=== PATIENT | female | born 1955 | race Caucasian/White ===

== ENCOUNTER 2019-08-12 14:54 | Outpatient (CLI) | payer BC, SELFPAY ==
--- NOTE | 2019-08-12 15:18 | MM_ITS ---
WS: [id number] SCREENING DIGITAL MAMMOGRAM WITH CAD HISTORY: SCREENING COMPARISON: 11/30/2017 and 09/02/2016 Bilateral CC and MLO views submitted. Computer aided detection analyzed. Breast composition: The breasts are heterogeneously dense, which may obscure small masses. No suspici ous masses, microcalcifications or architectural distortion. Benign calcification medial inferior LEF T breast. MM/[id number] IMPRESSION: BI-RADS: 2-Benign FOLLOW UP: 1 Year Follow-up
== END 2019-08-12 14:55 | disposition home or self-care (01) ==
PROVIDERS: Family Provider Family Medicine; PCP Family Medicine; Visit Provider Family Medicine
DX: Z12.31 Encounter for screening mammogram for malignant neoplasm of breast (principal)
CPT/HCPCS: 77067

== ENCOUNTER 2019-09-02 05:50 | Day surgery (SDC) | payer BC, SELFPAY ==
[2019-09-02 06:08] VITALS: BP 141/92; PULSE 67; RESP 18; TEMP 36.7; O2SAT 97
[2019-09-02] MEDS: sodium chloride 0.9% 1,000 ML 30 ML IV (06:17)
--- NOTE | 2019-09-02 06:36 | ANES.PREANES ---
Pre-Anesthetic Assessment Pre-Anesthetic Assessment: Height/Weight: Height 1.6 m Weight 64.864 kg Temp Pulse Resp BP Pulse Ox 98.0 F 67 18 141/92 97 09/02/19 06:08 09/02/19 06:08 09/02/19 06:08 09/02/19 06:08 09/02/19 06:08 Preop Diagnosis: left long trigger finger Proposed Procedure: Operation Date: 09/02/19 07:00 Proposed Procedures p Trigger Finger Release(Left) - Sanjiv Bella DO Last intake: Intake Last Liquid Date 09/01/19 Last Liquid Time 18:30 Last Solid Date 09/01/19 Last Solid Time 18:30 Social: Social History: No alcohol and No tobacco Exam: Pre-Anes Outpt Exam: alert, oriented x 3, clear to auscultation bilaterally and regular rate & rhythm Airway: Submandibular: WNL Cervical ROM: WNL MP: 2 Dentition: False (upper) History/ROS: No significant history except as noted CV/HEM: CV/HEM: HTN : : None reported Hepatic: Hepatic: None reported GI: GI: GERD (occ) Metabolic: Metabolic: Hyperlipidemia Musc/skel: Musc/skel: None reported Neuropsych: Neuropsych: None reported Anesthetic Plan: ASA status: II Anesthesia: Anesthesia Evaluation and MAC Risk of > 500 ml blood loss (7ml/kg in children): No Meds/Allergies Current Medications: Current Medications Generic Name Dose Route Start Last Admin Trade Name Freq PRN Reason Stop Dose Admin Sodium Chloride 1,000 mls @ 30 ml s/hr 09/02/19 05:45 09/02/19 06:17 Sodium Chloride 0.9% IV 09/03/19 05:44 30 mls/hr .Q24H CORINE Administration PFSH Anesthesia PFSH: Medical History Hyperlipemia (Acute) Hypertension (Acute) Surgical History H/O: hysterectomy (Acute) Social History Smoking and tobacco status: never smoked Alcohol intake: never Data Anesthesia Cardiac Studies: No Data to Display
--- NOTE | 2019-09-02 06:52 | PM.HPUD ---
H&P update H&P Update: DATE OF SURGERY/PROCEDURE: 09/02/19 DATE H&P PERFORMED: 08/17/19 PLANNED PROCEDURE: Operation Date: 09/02/19 07:00 Proposed Procedures p Trigger Finger Release(Left) - Sanjiv Bella DO Full H&P Medications/Allergies: Current Medications: Current Medications Generic Name Dose Route Start Last Admin Trade Name Freq PRN Reason Stop Dose Admin Sodium Chloride 1,000 mls @ 30 ml s/hr 09/02/19 05:45 09/02/19 06:17 Sodium Chloride 0.9% IV 09/03/19 05:44 30 mls/hr .Q24H CORINE Administration Perinent History: Medical/Surgical History: Medical History (Updated 08/18/19 @ 17:15 by Sanjiv Bella DO) Hyperlipemia (Acute) Hypertension (Acute) Social History: Social History Smoking and tobacco status: never smoked Alcohol intake: never
--- NOTE | 2019-09-02 06:53 | PM.OP ---
Operative Report Date of procedure: 09/02/19 Pre-op Diagnosis: left long trigger finger Post-op diagnosis: same Post-op Findings: Left long trigger finger Procedure Done: Left long trigger finger release Implants: n/a Pathology: none sent Surgeon: Sanjiv Bella Anesthesia: MAC Estimated blood loss (mL): 5 Tourniquet time (min): 11 (250 mmHg pressure) Complications: None Findings: Thickened tenosynovium tight A1 satinder Condition: stable Disposition: same day Brief History: 63-year-old white female with persistent triggering of the left long finger to include locking. Risk, benefits and potential complications of surgical intervention were discussed with the patient. Risks include are not limited to infection, nerve/blood vessel stent injury, failure to relieve all symptoms possible recurrence. Patient is agreeable to proceed with surgery. Procedure: 1.5 g Zinacef Patient identified. Surgical site signed. Surgical parasite. Patient be 1.5 g of Zinacef intravenously for surgical prophylaxis. She was taken back to the operating. She is placed supine on the operative table. A tourniquet placed at the upper aspect left upper extremity. The left upper extremity was sterilely prepped and draped usual fashion after the area of intended surgery was injected with 6 cc of one-to-one mixture 1% lidocaine and half percent Marcaine. A timeout was performed the operative limb was exsanguinated using Esmarch bandage tourniquet inflated 200 m mercury pressure. Transverse incision was made proximal to the area of the underlying A1 satinder of the left long finger. Dissection was carried down to the tendon sheath using tenotomy scissors. Retractors were placed on the radial ulnar aspects of the flexor tendons. The skin was undermined overlying the A1 satinder. The A1 satinder was identified. A small incision of the A1 satinder leading edge was first made with a #11 blade. We then completed the split of the A1 satinder using a tenotomy scissors. We verified the complete release of the A1 satinder. A hemostat was placed beneath the tendons and they were delivered out of the wound. Other than thickening of the tenosynovium no significant tendon pathology is noted. We asked the patient to flex and extend the digits of her left hand. She is able to do so without any triggering or locking of the left long finger. There is irrigated with Betadine containing saline solution and antibiotic containing saline solution skin was closed with nylon sutures on skin. Sterile dressings were applied as well as antibiotic ointment. Tourniquet was deflated during application of dressings. Patient was aroused from sedation taken back to outpatient surgery area. She tolerated surgery well. All counts are correct.
[2019-09-02] MEDS: cefUROXime 1,500 MG in sodium chloride 0.9% (plus) 50 ML 100 MG IV (06:57)
[2019-09-02] MEDS: lidocaine 1% INJ 20 mL SUBCUT (07:18)
[2019-09-02] MEDS: neomycin-poly-bacitracin oint 28 gm 1 APPLIC TOPICAL (07:32)
[2019-09-02 07:40] VITALS: BP 102/61; PULSE 55; RESP 18; TEMP 36.2; O2SAT 95
[2019-09-02 08:25] VITALS: BP 126/74; PULSE 51; RESP 18; O2SAT 100
[2019-09-02] MEDS: HYDROcodone-acetaminophen 5-325 mg Tablet 1 TAB PO (08:40)
== END 2019-09-02 08:46 | disposition home or self-care (01) ==
PROVIDERS: Family Provider Family Medicine; PCP Family Medicine; Visit Provider Orthopaedic Surgery
PROC: (CPT 26055; principal; 2019-09-02 07:00)
DX: M65.332 Trigger finger, left middle finger (principal); E78.5 Hyperlipidemia, unspecified; I10 Essential (primary) hypertension
CPT/HCPCS: 26055; 12345; 96365; J0697; J1580; J2001; J2250; J2704; J3010; J3490; J7030

== ENCOUNTER 2020-12-12 09:12 | Outpatient (CLI) | payer OTHER, SELFPAY ==
--- NOTE | 2020-12-12 09:17 | MM_ITS ---
WS: [id number] SCREENING DIGITAL MAMMOGRAM WITH CAD HISTORY: SCREENING COMPARISON: 08/12/2019, 11/30/2017 Bilateral CC and MLO views submitted. Computer aided detection analyzed. Breast composition: The breasts are heterogeneously dense, which may obscure small masses. No suspici ous masses, microcalcifications or architectural distortion. MM/[id number] IMPRESSION: BI-RADS: 1-Negative FOLLOW UP: 1 Year Follow-up
== END 2020-12-12 09:13 | disposition home or self-care (01) ==
LOC: RADSHAW 09:14
PROVIDERS: PCP Family Medicine; Visit Provider Nurse Practitioner Family
DX: Z12.31 Encounter for screening mammogram for malignant neoplasm of breast (principal)
CPT/HCPCS: 77067

== ENCOUNTER 2021-08-18 09:44 | Emergency (ER) | payer OTHER, SELFPAY ==
--- NOTE | 2021-08-18 09:46 | ECG_ITS ---
[facility] Test Date: 2021-08-18 Pat Name: Telma Hill Department: Room: Gender: Female Field Support Representative: : 1955 Requested By: Rafaela Liu Order Number: [id number] Higgins MD: Jayne Rodrigues M.D. Measurements Intervals [place] Rate: 78 P: 51 GA: 157 QRS: 54 QRSD: 90 T: 51 QT: 387 QTc: 443 Interpretive Statements SINUS RHYTHM No previous ECG available for comparison Electronically Signed On 08-20-2021 5:22:05 PRODUCTION COUNTER by Jayne Rodrigues M.D. [id number]
[2021-08-18 09:52] VITALS: BP 168/79; PULSE 82; RESP 12; TEMP 36.6; O2SAT 97; BMI 24.7
--- NOTE | 2021-08-18 12:11 | W.ED.GENADLT ---
Documented by User: Rafaela Liu PA-C 08/18/21 14:15 HPI - General Adult General: Chief complaint: Headache Stated complaint: HIGH B/P Time Seen by Provider: 08/18/21 12:07 Source: patient Mode of arrival: ambulatory Limitations: no limitations History of Present Illness: HPI narrative: 65-year-old female presents to the ER today for elevated blood pressure and headache. Patient reports she first noticed this yesterday when she began having a headache. Patient has been checking her blood pressure and noticed it has been high. This morning it was almost 180/110. Patient reports she has some blurry vision but that is a chronic issue. Patient has not taken anything for headache because she did not know what she could take with blood pressure issues. Patient reports she is on 5 mg of lisinopril but that is all she takes for blood pressure. She has never had blood pressures like this before. Patient denies any other symptoms at this time. Denies chest pain, shortness of breath, nausea, vomiting, diarrhea, constipation. Onset (ago): day(s) Review of Systems General: Reports: 10 or more systems reviewed and unremarkable except in HPI and below PFSH ED PFSH: Medical History Hyperlipemia Hypertension Surgical History H/O: hysterectomy Social History Smoking and tobacco status: never smoked Alcohol intake: never Physical Exam Const: COMMON NORMALS: no acute distress, average body habitus and patient oriented x3 GENERAL APPEARANCE: cooperative and comfortable HENMT: COMMON NORMALS: normocephalic, external ears normal, TM's normal bilaterally, Normal external nose present, Normal nasal mucous membranes and turbinates present, moist oral mucous membranes and oropharynx normal HEAD & SCALP: normocephalic NOSE: Normal external nose present and Normal nasal mucous membranes and turbinates present EXTERNAL EAR: Yes external ears normal TYMPANIC MEMBRANE: TM's normal bilaterally Eye: COMMON NORMALS: Equal, round and reactive pupils present and conjunctivae normal CONJUNCTIVA: Yes conjunctivae normal PUPIL: Yes Equal, round and reactive pupils present Lymph: LYMPHATIC: no lymphadenopathy noted Resp: COMMON NORMALS: normal respiratory effort, No retractions and clear to auscultation bilaterally EFFORT & INSPECTION: Yes able to speak in complete sentences AUSCULTATION: clear to auscultation bilaterally, no rales, no rhonchi and no wheezes Cardio: COMMON NORMALS: regular rate, regular rhythm and No murmurs present (Cardio) RATE: regular rate RHYTHM: regular rhythm GI: COMMON NORMALS: Normal to inspection, nondistended, normoactive bowel sounds present, Soft to palpation and non-tender PALPATION: Yes Soft to palpation Extremity: COMMON NORMALS: normal to inspection and full ROM Neuro: COMMON NORMALS: patient oriented x3, moves all extremities, no sensory deficits noted and gait normal Psych: COMMON NORMALS: mental status grossly normal, Normal thought process present and cooperative THOUGHT PROCESS: Normal thought process present Skin: COMMON NORMALS: no rashes or lesions noted and no wounds GENERAL SKIN EXAM: no rashes or lesions noted Course ED course: Patient presents to the ER today for elevated blood pressure and headache. She has a history of hypertension but is only taking 5 mg daily of lisinopril. Headache began after blood pressure started being elevated yesterday. Patient has not taken anything for her headache. We will give patient clonidine in the ER to help with the elevated blood pressure. Recommended patient take [id number]-[id number]-[id number] meds at home. EKG done in ER. Reevaluation(s): Reevaluation #1: Blood pressure significantly improved after clonidine. Headache has resolved. Waiting on lab work to send patient home. Time: 14:01 Vital Signs: Vital signs: Vital Signs Temperature 97.9 F 08/18/21 14:50 Pulse Rate 70 08/18/21 14:50 Respiratory Rate 14 08/18/21 14:50 Blood Pressure 127/71 08/18/21 14:50 Pulse Oximetry 96 08/18/21 14:50 MDM - General Adult MDM Narrative: Medical decision making narrative: 65-year-old female presents to the ER today for hypertension and headache. Patient reports the headache began after her blood pressure began to rise. Patient only takes 5 mg daily of lisinopril. Patient denies any other symptoms associated with the hypertension except for the headache. Patient has not taken anything at home for the headache at this time. Patient denies any recent illnesses. Denies blurry vision, chest pain, shortness of breath. EKG is normal in the ER today. We will give patient clonidine 0.1 mg to help with the elevated blood pressure. We will change patient's medication to lisinopril 10 mg daily and hydrochlorothiazide 12.5 mg daily patient to follow-up with her PCP in 3 to 5 days. Return to the ER with any new or worsening symptoms. Patient verbalized understanding and is in agreement with the treatment plan. Lab Data: Attestation: I reviewed the patient's lab results. Labs: Lab Results 08/18/21 08/18/21 13:42 13:42 WBC 6.7 10^3/uL 10^3/ uL (4.0-10.0) RBC 4.44 10^6/uL 10^6 /uL (4.1-5.3) Hgb 13.4 g/dL g/dL (11.5-15.3) Hct 40.8 % % (37.0-47.0) MCV 91.9 fl fl (81-99) MCH 30.2 pg pg (28.0-34.0) MCHC 32.8 g/dL g/dL (30.0-36.0) RDW 12.4 % % (12.1-15.1) Plt Count 241 10^3/cmm 10^3 /cmm (130-400) MPV 11.9 fL H fL (7.4-10.4) Neut % (Auto) 71.5 % % Lymph % (Auto) 19.3 % % [place] % (Auto) 7.9 % % Eos % (Auto) 0.4 % % Baso % (Auto) 0.6 % % Neut # (Auto) 4.82 10^3/uL 10^3 /uL (1.8-7.7) Lymph # (Auto) 1.3 10^3/uL 10^3/ uL (0.8-4.8) [place] # (Auto) 0.5 10^3/uL 10^3/ uL (0.2-0.9) Eos # (Auto) 0.0 10^3/uL 10^3/ uL (0.0-0.8) Baso # (Auto) 0.0 10^3/uL 10^3/ uL (0.0-0.1) Nucleated RBC % (a uto) 0 % % Nucleated RBCs # 0.0 /100WBC /100W BC Sodium 138 mmol/L mmol/L (136-145) Potassium 4.3 mmol/L mmol/L (3.5-5.1) Chloride 100 mmol/L mmol/L (98-107) Carbon Dioxide 30 mmol/L H mmol/ L (22-29) Anion Gap 12.3 (5-19) BUN 7 mg/dL L mg/dL (8-23) Creatinine 0.8 mg/dL mg/dL (0.5-0.9) GFR Calculation 72.2 mL/min L mL/ min (90-130) Glucose 97 mg/dL mg/dL (65-115) Calculated Osmolal ity 284 mOsm/kg L mOs m/kg (285-295) Calcium 8.6 mg/dL mg/dL (8.5-10.5) Total Bilirubin 0.3 mg/dL mg/dL (0.15-1.2) AST 15 U/L U/L (0-32) ALT 10 U/L U/L (0-33) Alkaline Phosphata se 71 IU/L IU/L (35-105) Total Protein 6.4 g/dL L g/dL (6.6-8.7) Albumin 4.3 g/dL g/dL (3.5-5.2) Globulin 2.1 g/dL g/dL (1.3-4.6) Discharge Plan Discharge Patient Disposition: Home Clinical Impression: Hypertension Qualifiers: Hypertension type: unspecified Qualified Code(s): I10 - Essential (primary) hypertension Headache Qualifiers: Headache type: unspecified Headache chronicity pattern: acute headache Intractability: not intractable Qualified Code(s): R51.9 - Headache, unspecified Condition: Stable Prescriptions: New lisinopril 10 mg tablet 10 mg PO DAILY Qty: 30 RF: 0 hydrochlorothiazide 12.5 mg tablet 12.5 mg PO DAILY Qty: 30 RF: 0 Discontinued lisinopril 10 mg Tablet 5 mg PO DAILY RF: 0 No Action simvastatin 40 mg tablet 40 mg PO ONCE RF: 0 fluoxetine [Prozac] 10 mg capsule 10 mg PO ONCE RF: 0 aspirin 81 mg Tablet,Chewable 81 mg PO DAILY RF: 0 hydrocodone-acetaminophen 5-325 mg tablet 1 tab PO Q4H PRN (Reason: pain) Qty: 20 RF: 0 Discharge Orders: Discharge ED (Routine); Ordered 08/18/21 Ordered By: Rafaela Liu Referrals: Josiah Mohr MD [Primary Care Provider] - Discharge Diet: Usual diet Discharge Activity: Resume usual activity Patient Instructions: Hypertension (ED), Opioid Safety Activity Restrictions/Additional Instructions: Take hydrochlorothiazide and lisinopril as prescribed. Take [id number]-wvejlje medications for headache such as Tylenol and ibuprofen. Follow-up with PCP in 3 to 5 days. Return to the ER with any new or worsening symptoms. Coding Level of Care Code ED Health And Safety Trainer for Chg Fwd Exam Comprehensive Documented by User: Erich Blair MD 08/24/21 21:30 HPI - General Adult General: Chief complaint: Headache Stated complaint: HIGH B/P Time Seen by Provider: 08/18/21 12:07 [facility] ED PFSH: Medical History Hyperlipemia Hypertension Surgical History H/O: hysterectomy Social History Smoking and tobacco status: never smoked Alcohol intake: never Course Vital Signs: Vital signs: Vital Signs Temperature 97.9 F 08/18/21 14:50 Pulse Rate 70 08/18/21 14:50 Respiratory Rate 14 08/18/21 14:50 Blood Pressure 127/71 08/18/21 14:50 Pulse Oximetry 96 08/18/21 14:50 MDM - General Adult MDM Narrative: Medical decision making narrative: I discussed this case with LINDSEY Schmitz. I have reviewed documentation, labs, imaging. Erich Blair MD Emergency Medicine Lab Data: Labs: Lab Results 08/18/21 08/18/21 13:42 13:42 WBC 6.7 10^3/uL 10^3/ uL (4.0-10.0) RBC 4.44 10^6/uL 10^6 /uL (4.1-5.3) Hgb 13.4 g/dL g/dL (11.5-15.3) Hct 40.8 % % (37.0-47.0) MCV 91.9 fl fl (81-99) MCH 30.2 pg pg (28.0-34.0) MCHC 32.8 g/dL g/dL (30.0-36.0) RDW 12.4 % % (12.1-15.1) Plt Count 241 10^3/cmm 10^3 /cmm (130-400) MPV 11.9 fL H fL (7.4-10.4) Neut % (Auto) 71.5 % % Lymph % (Auto) 19.3 % % [place] % (Auto) 7.9 % % Eos % (Auto) 0.4 % % Baso % (Auto) 0.6 % % Neut # (Auto) 4.82 10^3/uL 10^3 /uL (1.8-7.7) Lymph # (Auto) 1.3 10^3/uL 10^3/ uL (0.8-4.8) [place] # (Auto) 0.5 10^3/uL 10^3/ uL (0.2-0.9) Eos # (Auto) 0.0 10^3/uL 10^3/ uL (0.0-0.8) Baso # (Auto) 0.0 10^3/uL 10^3/ uL (0.0-0.1) Nucleated RBC % (a uto) 0 % % Nucleated RBCs # 0.0 /100WBC /100W BC Sodium 138 mmol/L mmol/L (136-145) Potassium 4.3 mmol/L mmol/L (3.5-5.1) Chloride 100 mmol/L mmol/L (98-107) Carbon Dioxide 30 mmol/L H mmol/ L (22-29) Anion Gap 12.3 (5-19) BUN 7 mg/dL L mg/dL (8-23) Creatinine 0.8 mg/dL mg/dL (0.5-0.9) GFR Calculation 72.2 mL/min L mL/ min (90-130) Glucose 97 mg/dL mg/dL (65-115) Calculated Osmolal ity 284 mOsm/kg L mOs m/kg (285-295) Calcium 8.6 mg/dL mg/dL (8.5-10.5) Total Bilirubin 0.3 mg/dL mg/dL (0.15-1.2) AST 15 U/L U/L (0-32) ALT 10 U/L U/L (0-33) Alkaline Phosphata se 71 IU/L IU/L (35-105) Total Protein 6.4 g/dL L g/dL (6.6-8.7) Albumin 4.3 g/dL g/dL (3.5-5.2) Globulin 2.1 g/dL g/dL (1.3-4.6) Discharge Plan Discharge Patient Disposition: Home Clinical Impression: Hypertension Qualifiers: Hypertension type: unspecified Qualified Code(s): I10 - Essential (primary) hypertension Headache Qualifiers: Headache type: unspecified Headache chronicity pattern: acute headache Intractability: not intractable Qualified Code(s): R51.9 - Headache, unspecified Condition: Stable Prescriptions: New lisinopril 10 mg tablet 10 mg PO DAILY Qty: 30 RF: 0 hydrochlorothiazide 12.5 mg tablet 12.5 mg PO DAILY Qty: 30 RF: 0 Discontinued lisinopril 10 mg Tablet 5 mg PO DAILY RF: 0 No Action simvastatin 40 mg tablet 40 mg PO ONCE RF: 0 fluoxetine [Prozac] 10 mg capsule 10 mg PO ONCE RF: 0 aspirin 81 mg Tablet,Chewable 81 mg PO DAILY RF: 0 hydrocodone-acetaminophen 5-325 mg tablet 1 tab PO Q4H PRN (Reason: pain) Qty: 20 RF: 0 Discharge Orders: Discharge ED (Routine); Ordered 08/18/21 Ordered By: Rafaela Liu Referrals: Josiah Mohr MD [Primary Care Provider] - Discharge Diet: Usual diet Discharge Activity: Resume usual activity Patient Instructions: Hypertension (ED), Opioid Safety Activity Restrictions/Additional Instructions: Take hydrochlorothiazide and lisinopril as prescribed. Take [id number]-[id number] medications for headache such as Tylenol and ibuprofen. Follow-up with PCP in 3 to 5 days. Return to the ER with any new or worsening symptoms. Coding Level of Care Code ED Health And Safety Trainer for Jerry Fwd Exam Comprehensive
[2021-08-18 12:56] VITALS: BP 157/83
[2021-08-18] MEDS: cloNIDine 0.1 mg Tablet PO (12:56)
[2021-08-18 13:23] VITALS: BP 150/79
[2021-08-18 13:55] LABS: Basophils % 0.6 %; Eosinophils % 0.4 %; Hematocrit 40.8 % (37.0-47.0); Hemoglobin 13.4 g/dL (11.5-15.3); Lymphocytes # 1.3 10^3/uL (0.8-4.8); Lymphocytes % 19.3 %; Mean Corpuscular HGB Conc 32.8 g/dL (30.0-36.0); Mean Corpuscular Hemoglobin 30.2 pg (28.0-34.0); Mean Corpuscular Volume 91.9 fl (81-99); Mean Platelet Volume 11.9 fL (7.4-10.4); Monocytes # 0.5 10^3/uL (0.2-0.9); Monocytes % 7.9 %; Neutrophils # 4.82 10^3/uL (1.8-7.7); Neutrophils % 71.5 %; Nucleated Red Blood Cells % 0 %; Platelet Count 241 10^3/cmm (130-400); Red Blood Count 4.44 10^6/uL (4.1-5.3); Red Cell Distribution Width 12.4 % (12.1-15.1); White Blood Count 6.7 10^3/uL (4.0-10.0)
[2021-08-18 14:12] LABS: Alanine Aminotransferase 10 U/L (0-33); Albumin Level 4.3 g/dL (3.5-5.2); Alkaline Phosphatase 71 IU/L (35-105); Anion Gap 12.3 (5-19); Aspartate Amino Transferase 15 U/L (0-32); Blood Urea Nitrogen 7 mg/dL (8-23); Calcium 8.6 mg/dL (8.5-10.5); Carbon Dioxide 30 mmol/L (22-29); Chloride 100 mmol/L (98-107); Globulin 2.1 g/dL (1.3-4.6); Glomerular Filtration Rate 72.2 mL/min (90-130); Glucose 97 mg/dL (65-115); Osmolality Calculated 284 mOsm/kg (285-295); Potassium 4.3 mmol/L (3.5-5.1); Sodium 138 mmol/L (136-145); Total Bilirubin 0.3 mg/dL (0.15-1.2); Total Protein 6.4 g/dL (6.6-8.7)
--- NOTE | 2021-08-18 14:45 | PC.NURSE ---
reviewed discharge instructions with patient, pt verbalizes understanding of all instructions, medications and follow up. pt ambulated from the ED without issue with all belongs
[2021-08-18 14:50] VITALS: BP 127/71; PULSE 70; RESP 14; TEMP 36.6; O2SAT 96
== END 2021-08-18 14:51 | disposition home or self-care (01) ==
PROVIDERS: Emergency Provider Physician Assistant; PCP Family Medicine
DX: I10 Essential (primary) hypertension (principal); R51.9 Headache, unspecified; E78.5 Hyperlipidemia, unspecified; Z79.82 Long term (current) use of aspirin; Z79.891 Long term (current) use of opiate analgesic
CPT/HCPCS: 80053; 85025; 93005; 99283

== ENCOUNTER 2021-10-22 20:00 | Outpatient (CLI) | payer OTHER, SELFPAY | END 2021-10-22 20:01 | disposition home or self-care (01) | LOC: SLEEP 10-23 07:36 | PROVIDERS: PCP Family Medicine; Visit Provider Family Medicine | DX: G47.10 Hypersomnia, unspecified (principal); R06.83 Snoring; R53.83 Other fatigue; G47.33 Obstructive sleep apnea (adult) (pediatric) | CPT/HCPCS: 95810 ==

== ENCOUNTER 2022-02-20 10:17 | Outpatient (CLI) | payer OTHER, SELFPAY ==
--- NOTE | 2022-02-20 10:25 | MM_ITS ---
WS: [id number] Bilateral screening 3D tomosynthesis digital mammogram, 02/20/2022 Clinical Data: SCREENING Comparison: 12/12/2020, 08/12/2019, 11/30/2017, 09/02/2016, 06/13/2015, 05/20/2012, 05/01/2010 Findings: The breast parenchymal pattern shows heterogeneous density. No spiculated masses or clustered calcifi cations are seen. There are no secondary signs of carcinoma. MM/[place] [id number] Impression: 1. Negative bilateral mammogram unchanged. 2. Recommend annual screening mammograms. BIRADS: 1-Negative FOLLOW UP: 1 Year Follow-up The CAD mechanical car checker was used.
== END 2022-02-20 10:18 | disposition home or self-care (01) ==
LOC: RAD 10:18
PROVIDERS: PCP Family Medicine; Visit Provider Family Medicine
DX: Z12.31 Encounter for screening mammogram for malignant neoplasm of breast (principal)
CPT/HCPCS: 77063; 77067

== ENCOUNTER 2022-03-21 13:08 | Outpatient (CLI) | payer OTHER, SELFPAY ==
--- NOTE | 2022-03-21 13:19 | XR_ITS ---
WS: [id number] DEXA (DUAL ENERGY X-RAY ABSORPTIOMETRY) Bone mineral density was performed using a [employer] machine. HISTORY: POSTMENOPAUSAL COMPARISON: None available. Lumbar spine BMD (L1-L4): 0.946 g/cm2 T score: -2.0 Z score: -0.4 Total hip BMD: Left: 0.715 g/cm2. T score: -2.3 Z score: -1.2 Right: 0.738 g/cm2. T score: -2.1 Z score: -1.0 10 year probability of a major osteoporotic fracture is 16.6%. XR/XR DEXA axial skeleton* [id number] IMPRESSION: OSTEOPENIA based upon the WHO classification for females.
== END 2022-03-21 13:09 | disposition home or self-care (01) ==
LOC: RAD 13:08
PROVIDERS: PCP Family Medicine; Visit Provider Family Medicine
DX: Z78.0 Asymptomatic menopausal state (principal); M85.80 Other specified disorders of bone density and structure, unspecified site
CPT/HCPCS: 77080

== ENCOUNTER 2023-06-05 09:46 | Outpatient (CLI) | payer OTHER, SELFPAY ==
--- NOTE | 2023-06-05 09:52 | MM_ITS ---
WS: [id number] VIEWS: MLO and CC views both breasts. 3D digital tomosynthesis is also included in this exam. Comparison made with prior exam of 12/16/2005, 05/01/2010, 05/20/2012, 06/13/2015, 09/02/2016, 11/30/2017, 08/12/2019, 12/12/2020, 02/20/2022.. Findings: There is a questionable 7 mm nodule seen in the medial RIGHT breast at posterior depth on the cc view only. This can be seen both on the conventional imaging and the tomogram. No architectural distortio n or suspicious calcification. Compression spot views of the RIGHT breast to include tomography is re commended for further work-up. Ultrasound of this area may also be necessary. The LEFT breast is unre markable. The breasts are heterogeneously dense which may obscure small masses. There were no other c hanges since prior studies. Impression: MM/[place] [id number] BI-RADS: 0-Incomplete: Need additional imaging evaluation FOLLOW-UP: See Report This mammogram was also analyzed by the Computer Aided Detection System R2 Imag e Professor Of Art History.
== END 2023-06-05 09:47 | disposition home or self-care (01) ==
PROVIDERS: PCP Family Medicine; Visit Provider Family Medicine
DX: Z12.31 Encounter for screening mammogram for malignant neoplasm of breast (principal)
CPT/HCPCS: 77063; 77067

== ENCOUNTER 2023-06-26 08:46 | Outpatient (CLI) | payer OTHER, SELFPAY ==
--- NOTE | 2023-06-26 09:05 | MM_ITS ---
WS: [id number] VIEWS: Compression spot images with tomography were obtained in the CC, ML and cleavage views for e valuation of the medial RIGHT breast. Comparison made with prior exam of screening mammogram 06/05/2023.. Findings: There is no suspicious mass, architectural distortion or calcification in the medial RIGHT breast wit h additional views and tomograms. There are scattered areas of fibroglandular density in the RIGHT br east. Continue yearly screening mammography. Impression: MM/[place] [id number] BI-RADS: 2-Benign finding. FOLLOW-UP: 1 Year Follow-up This mammogram was also analyzed by the Computer Aided Detection System R2 Imag e Contract Attorney.
== END 2023-06-26 08:47 | disposition home or self-care (01) ==
LOC: RAD 08:46
PROVIDERS: PCP Family Medicine; Visit Provider Family Medicine
DX: R92.8 Other abnormal and inconclusive findings on diagnostic imaging of breast (principal)
CPT/HCPCS: 77061; G0279

== ENCOUNTER 2024-07-01 10:16 | Outpatient (CLI) | payer MEDICARE, SELFPAY ==
--- NOTE | 2024-07-01 10:25 | MM_ITS ---
WS: [id number] BILATERAL SCREENING DIGITAL TOMOSYNTHESIS MAMMOGRAM WITH CAD HISTORY: SCREENING COMPARISON: 06/05/2023, 02/20/2022 and 12/12/2020 Bilateral CC and MLO views with tomosynthesis and synthetic mammography submitted. Computer aided det ection analyzed. Breast composition: There are scattered areas of fibroglandular density. No suspicious masses, microc alcifications or architectural distortion. MM/MM scr BI tomosynthesis [id number] IMPRESSION: BI-RADS: 1 - Negative. FOLLOW UP: 1 Year Follow-up
== END 2024-07-01 10:17 | disposition home or self-care (01) ==
LOC: RAD 10:18
PROVIDERS: PCP Family Medicine; Visit Provider Family Medicine
DX: Z12.31 Encounter for screening mammogram for malignant neoplasm of breast (principal); R92.323 Mammographic fibroglandular density, bilateral breasts
CPT/HCPCS: 77063; 77067

== ENCOUNTER 2024-09-01 13:00 | Outpatient (CLI) | payer MEDICARE, OTHER, SELFPAY ==
--- NOTE | 2024-09-01 13:10 | XR_ITS ---
WS: [id number] DEXA (DUAL ENERGY X-RAY ABSORPTIOMETRY) Bone mineral density was performed using a [employer] machine. HISTORY: POSTMENOPAUSAL COMPARISON: 03/21/2022 Lumbar spine BMD (L1-L4): 0.966 g/cm2 T score: -1.8 Z score: -0.4 Total hip BMD: Left: 0.704 g/cm2. T score: -2.4 Z score: -1.2 Right: 0.730 g/cm2. T score: -2.2 Z score: -1.0 10 year probability of a major osteoporotic fracture is 17.0%. Compared to the prior study from 03/21/2022. Lumbar spine bone mineral density has increased by 2.2%. Bilateral hips bone mineral density has decreased by 1.4%. XR/XR DEXA axial skeleton* [id number] IMPRESSION: OSTEOPENIA based upon the WHO classification for females. Significant increase in bone mineral density within the lumbar spine since the prior study. No significant change of bone mineral density within the hips.
== END 2024-09-01 13:01 | disposition home or self-care (01) ==
PROVIDERS: PCP Family Medicine; Visit Provider Family Medicine
DX: Z78.0 Asymptomatic menopausal state (principal); M85.80 Other specified disorders of bone density and structure, unspecified site
CPT/HCPCS: 77080

== ENCOUNTER 2025-07-03 09:24 | Outpatient (CLI) | payer MEDICARE, OTHER, SELFPAY ==
--- NOTE | 2025-07-03 09:33 | MM_ITS ---
WS: [id number] BILATERAL 3D TOMOSYNTHESIS DIGITAL SCREENING MAMMOGRAPHY WITH CAD CLINICAL INFORMATION: SCREENING HISTORY: Screening mammogram. No current complaints. COMPARISON: 2023 TECHNIQUE: Bilateral CC and MLO views. FINDINGS: Scattered fibroglandular densities bilaterally. No suspicious focal mass, asymmetry, calcifications, or architectural distortion. No evidence of malignancy. Vascular calcification. MM/MM scr tomosynthesis [id number] IMPRESSION: DENSITY: There are scattered areas of fibroglandular density. BI-RADS: 2 - Benign. FOLLOW UP: 1 Year Follow-up Recommend return to annual screening mammography.
== END 2025-07-03 09:25 | disposition home or self-care (01) ==
LOC: RAD 09:24
PROVIDERS: PCP Family Medicine; Visit Provider Family Medicine
DX: Z12.31 Encounter for screening mammogram for malignant neoplasm of breast (principal); R92.1 Mammographic calcification found on diagnostic imaging of breast
CPT/HCPCS: 77063; 77067